=== PATIENT | male | born 1930 | race Caucasian/White ===

== ENCOUNTER 2017-05-23 06:28 | Emergency (ER) | payer MEDICARE, OTHER ==
[2017-05-23] MEDS ORDERED: OXYMETAZOLINE NASAL SPRAY NAS ONE (06:42)
[2017-05-23] MEDS ORDERED: OXYMETAZOLINE NASAL SPRAY NAS STA (06:46)
--- NOTE | 2017-05-23 06:50 | ED Physician Documentation ---
History of Present Illness - Stated complaint Stated Complaint: NOSE BLEED - Chief complaint Chief Complaint: Heent - Additonal information Additional information: hx from pt 86 male epistaxis every AM for 5 days mostly from L nares, some from right too but less no blood thinners Review of Systems Nose: reports: Epistaxis PD PAST MEDICAL HISTORY - Past Medical History Past Medical History: Yes Cardiovascular: Hypertension, High cholesterol, Valve disorder Endocrine/Autoimmune: HyPOthyroidism - Past Surgical History Past Surgical History: Yes Cardiovascular: Coronary stent, Valve replacement - Present Medications Home Medications: Ambulatory Orders Medication Instructions Recorded Confirmed Levothyroxine [Synthroid] 50 mg PO DAILY 02/14/16 05/23/17 Losartan [Cozaar] 25 mg PO DAILY 02/14/16 05/23/17 Aspirin [Aspir-Low] 81 mg PO DAILY 03/13/16 05/23/17 Metoprolol Tartrate 25 mg PO DAILY 03/13/16 05/23/17 - Allergies Allergies/Adverse Reactions: Allergies Allergy/AdvReac Type Severity Reaction Status Date / Time Sulfa (Sulfonamide Allergy Unknown Verified 05/23/17 06:38 Antibiotics) codeine AdvReac Nausea Verified 05/23/17 06:38 - Social History Does the pt smoke?: No Smoking Status: Never smoker Does the pt drink ETOH?: Yes Does the pt have substance abuse?: No - Immunizations Immunizations are current?: No - POLST Patient has POLST: No PD ED PE NORMAL - Vitals Vital signs reviewed: Yes - HEENT HEENT: Other (L nares several punctate spots of bleeding from ant spetum and a second oozing spot higher up the septum, no ongiong active bleeding after afrin , no blood seen in right nares) Results - Vitals Vitals: Vital Signs - 24 hr 05/23/17 05/23/17 06:30 06:42 Temperature 36.0 C L Heart Rate 80 67 Respiratory 16 18 Rate Blood Pressure 167/84 H 150/99 H O2 Saturation 97 99 Oxygen O2 Source Room air Procedures - Epistaxis Site: Left Preparation: Clots removed, Afrin Treatment: Silver Nitrate Other: Observed - no bleeding, Pt tolerated well, Referred to ENT PD MEDICAL DECISION MAKING - ED course ED course: L nares cauterized, no further bleeding Departure - Departure Disposition: 01 Home, Self Care Clinical Impression: Epistaxis Condition: Good Instructions: ED Nosebleed Follow-Up: [facility] [Provider Group] Comments: If your nose starts to bleed again, do the following steps 1) gently blow your nose to get rid of any clots 2) give yourself a big squirt of the afrin nose spray in whichever nostril is bleeding 3) apply the clamp we gave you and leave it on for 30 minutes without peeking If jorge a does not stop the bleeding, you will need to come back to the ER And please call the ENT office to schedule a follow up appointment
[2017-05-23 07:59] VITALS: BP 156/86
== END 2017-05-23 08:14 | disposition home or self-care (01) ==
LOC: ED 06:28
DX: R04.0 Epistaxis (principal); I10 Essential (primary) hypertension; E78.00 Pure hypercholesterolemia, unspecified; E03.9 Hypothyroidism, unspecified; Z95.2 Presence of prosthetic heart valve; Z79.82 Long term (current) use of aspirin
CPT/HCPCS: 30901; 99282; 99284; A9270

== ENCOUNTER 2017-05-24 08:01 | Emergency (ER) | payer MEDICARE, OTHER ==
--- NOTE | 2017-05-24 08:33 | ED Physician Documentation ---
PD HPI HEENT - Stated complaint Stated Complaint: NOSE BLEED - Chief complaint Chief Complaint: Heent - History obtained from History obtained from: Patient - History of Present Illness Timing - onset: Today (nosebleed) Timing - duration: Hours (1) Timing - details: Abrupt onset, Still present Associated symptoms: No: Fever, Congestion, Rhinorrhea Similar symptoms before: Diagnosis (nosebleed) Recently seen: Emergency Dept (seen yesterday and had bleeding left side, with cautery and then rhinorocket placed. He was doing okay and then had bleeding again this morning which continued despite pinching nose with clamp. Some blood then to right side and back of throat.) Review of Systems Constitutional: denies: Fever, Chills Nose: reports: Rhinorrhea / runny nose (last week), Epistaxis. denies: Sinus pressure / pain Throat: denies: Sore throat Respiratory: denies: Cough GI: denies: Nausea, Vomiting Endocrine: denies: Easy bruising / bleeding Immunocompromised: denies: Immunocompromised PD PAST MEDICAL HISTORY - Past Medical History Cardiovascular: Hypertension, High cholesterol, Valve disorder Endocrine/Autoimmune: HyPOthyroidism - Past Surgical History Past Surgical History: Yes Cardiovascular: Coronary stent, Valve replacement - Present Medications Home Medications: Ambulatory Orders Medication Instructions Recorded Confirmed Levothyroxine [Synthroid] 50 mg PO DAILY 02/14/16 05/23/17 Losartan [Cozaar] 25 mg PO DAILY 02/14/16 05/23/17 Aspirin [Aspir-Low] 81 mg PO DAILY 03/13/16 05/23/17 Metoprolol Tartrate 25 mg PO DAILY 03/13/16 05/23/17 - Allergies Allergies/Adverse Reactions: Allergies Allergy/AdvReac Type Severity Reaction Status Date / Time Sulfa (Sulfonamide Allergy Unknown Verified 05/24/17 08:19 Antibiotics) codeine AdvReac Nausea Verified 05/24/17 08:19 - Social History Does the pt smoke?: No Smoking Status: Never smoker Does the pt drink ETOH?: Yes Does the pt have substance abuse?: No - Immunizations Immunizations are current?: No - POLST Patient has POLST: No PD ED PE NORMAL - Vitals Vital signs reviewed: Yes - General General: Alert and oriented X 3, No acute distress, Well developed/nourished - HEENT HEENT: Other (balloon rhinorocket in place left nostril with some blood dripping from it. It was removed and I could see bleeding left medial anterior wall. ) - Neck Neck: Supple, no meningeal sign, No adenopathy - Cardiac Cardiac: RRR, No murmur - Respiratory Respiratory: Clear bilaterally - Derm Derm: Normal color, Warm and dry Results - Vitals Vitals: Vital Signs - 24 hr 05/24/17 05/24/17 08:12 09:55 Temperature 36.5 C Heart Rate 83 69 Respiratory 18 15 Rate Blood Pressure 135/76 H 142/77 H O2 Saturation 98 99 Oxygen O2 Source Room air Procedures - Epistaxis Site: Left, Anterior Preparation: Clots removed, Afrin, Lidocaine, Clamp / pressure applied Treatment: Silver Nitrate, Packing inserted (murocel) Other: Observed - no bleeding, Pt tolerated well, O2 sat WNL Departure - Departure Disposition: 01 Home, Self Care Clinical Impression: Epistaxis Condition: Stable Record reviewed to determine appropriate education?: Yes Instructions: ED Nosebleed Follow-Up: Jose Hope MD [Primary Care Provider] - Comments: Keep the foam packing in the left nostril for 1-2 days. If you have recurrent bleeding, pinched nose and spray the phone with Afrin. Return if needed because of bleeding. Otherwise recheck in 1-2 days for recheck removal of the nose packing and to ensure its doing okay. Discharge Date/Time: 05/24/17 10:01
[2017-05-24] MEDS ORDERED: OXYMETAZOLINE NASAL SPRAY NAS STA (08:35)
[2017-05-24] MEDS ORDERED: OXYMETAZOLINE NASAL SPRAY NAS ONE (08:46)
[2017-05-24 09:58] VITALS: BP 142/77
--- NOTE | 2017-05-24 21:06 | ED Physician Documentation ---
ED Addendum - Addendum Addendum: 05/24/17 21:05 unscheduled return visit - chart accessed for follow up and educational purposes
== END 2017-05-24 10:01 | disposition home or self-care (01) ==
LOC: ED 08:01
DX: R04.0 Epistaxis (principal); I10 Essential (primary) hypertension; E78.00 Pure hypercholesterolemia, unspecified; E03.9 Hypothyroidism, unspecified; Z95.2 Presence of prosthetic heart valve
CPT/HCPCS: 30901; 99282; 99283; A9270

== ENCOUNTER 2017-05-25 08:41 | Emergency (ER) | payer MEDICARE, OTHER ==
--- NOTE | 2017-05-25 08:43 | ED Physician Documentation ---
PD HPI HEENT - Stated complaint Stated Complaint: PLUG IN NOSE - History obtained from History obtained from: Patient - History of Present Illness Timing - onset: How many days ago (seen 2 days ago for nosebleed, with bleeding again yesterday, and had cuatery and packing. Was to return for recheck and packing removal today. No bleeding again per patient.) Timing - details: Abrupt onset, Now resolved Location: Nose Similar symptoms before: Diagnosis (nosebleed) Recently seen: Emergency Dept (yesterday) Review of Systems Constitutional: denies: Fever, Chills Nose: reports: Epistaxis. denies: Sinus pressure / pain PD PAST MEDICAL HISTORY - Past Medical History Cardiovascular: Hypertension, High cholesterol, Valve disorder Endocrine/Autoimmune: HyPOthyroidism - Past Surgical History Past Surgical History: Yes Cardiovascular: Coronary stent, Valve replacement - Present Medications Home Medications: Ambulatory Orders Medication Instructions Recorded Confirmed Levothyroxine [Synthroid] 50 mg PO DAILY 02/14/16 05/25/17 Losartan [Cozaar] 25 mg PO DAILY 02/14/16 05/25/17 Aspirin [Aspir-Low] 81 mg PO DAILY 03/13/16 05/25/17 Metoprolol Tartrate 25 mg PO DAILY 03/13/16 05/25/17 - Allergies Allergies/Adverse Reactions: Allergies Allergy/AdvReac Type Severity Reaction Status Date / Time Sulfa (Sulfonamide Allergy Unknown Verified 05/25/17 08:48 Antibiotics) codeine AdvReac Nausea Verified 05/25/17 08:48 - Social History Does the pt smoke?: No Smoking Status: Never smoker Does the pt drink ETOH?: Yes Does the pt have substance abuse?: No - Immunizations Immunizations are current?: No - POLST Patient has POLST: No PD ED PE NORMAL - Vitals Vital signs reviewed: Yes - General General: Alert and oriented X 3 - HEENT HEENT: Pharynx benign, Other (packing left nostril which is white. No bleeding. Packing removed without problems and the cautery area is clean. ) Results - Vitals Vitals: Oxygen O2 Source Room air Departure - Departure Disposition: Home, Self Care Clinical Impression: Encounter for removal of nasal packing Condition: Stable Record reviewed to determine appropriate education?: Yes Follow-Up: Jose Hope MD [Primary Care Provider] - Comments: Gently apply some ointment to the inside nostril on the left with a Q-tip once or twice a day to keep it moisturized. Recheck if recurrent bleeding. Continue usual medications. Follow-up with your family doctor as needed. Discharge Date/Time: 05/25/17 09:18
[2017-05-25 08:48] VITALS: BP 157/85
== END 2017-05-25 09:18 | disposition home or self-care (01) ==
LOC: ED 08:41
DX: Z48.00 Encounter for change or removal of nonsurgical wound dressing (principal)
CPT/HCPCS: 99282; 99283

== ENCOUNTER 2017-05-27 08:10 | Emergency (ER) | payer MEDICARE, OTHER ==
[2017-05-27 08:18] VITALS: BP 163/74
[2017-05-27] MEDS ORDERED: LIDOCAINE-EPINEPH-TETRACAINE 3 ML SYRINGE TOP STA (08:51)
[2017-05-27] MEDS ORDERED: LIDOCAINE-EPINEPH-TETRACAINE 3 ML SYRINGE TOP ONE (08:59)
--- NOTE | 2017-05-27 09:11 | ED Physician Documentation ---
PD HPI HEENT - Stated complaint Stated Complaint: NOSE BLEED - Chief complaint Chief Complaint: Heent - History obtained from History obtained from: Patient - History of Present Illness Timing - onset: How many days ago (5) Timing - duration: Days (5) Timing - details: Gradual onset, Still present, Waxing and waning Location: Nose Associated symptoms: No: Fever, Congestion, Rhinorrhea, Trismus, Unable to swallow Similar symptoms before: Diagnosis (epistaxis) Recently seen: Clinic, Emergency Dept - Additional information Additional information: 86-year-old male has had some difficulty with bleeding from the left nares for the past 6 days. He has had symptoms on and off he has been into the emergency department 3 times with packing and cautery and he has been into see his primary care doctor as well. This morning he had some bleeding again and he is come to the hospital. The bleeding is now controlled. Review of Systems Constitutional: denies: Fever Ears: denies: Ear pain Nose: reports: Epistaxis Throat: denies: Sore throat Respiratory: denies: Cough GI: denies: Vomiting PD PAST MEDICAL HISTORY - Past Medical History Cardiovascular: Hypertension, High cholesterol, Valve disorder Endocrine/Autoimmune: HyPOthyroidism - Past Surgical History Past Surgical History: Yes Cardiovascular: Coronary stent, Valve replacement - Present Medications Home Medications: Ambulatory Orders Medication Instructions Recorded Confirmed Levothyroxine [Synthroid] 50 mg PO DAILY 02/14/16 05/27/17 Losartan [Cozaar] 25 mg PO DAILY 02/14/16 05/27/17 Aspirin [Aspir-Low] 81 mg PO DAILY 03/13/16 05/27/17 Metoprolol Tartrate 25 mg PO DAILY 03/13/16 05/27/17 - Allergies Allergies/Adverse Reactions: Allergies Allergy/AdvReac Type Severity Reaction Status Date / Time Sulfa (Sulfonamide Allergy Unknown Verified 05/27/17 08:17 Antibiotics) codeine AdvReac Nausea Verified 05/27/17 08:17 - Social History Does the pt smoke?: No Smoking Status: Never smoker Does the pt drink ETOH?: Yes Does the pt have substance abuse?: No - Immunizations Immunizations are current?: No - POLST Patient has POLST: No PD ED PE NORMAL - Vitals Vital signs reviewed: Yes (Hypertensive) - General General: No acute distress, Well developed/nourished - HEENT HEENT: Atraumatic, PERRL, EOMI, Other (There is no active bleeding from the left nares there are 2 small areas of recent bleeding on the anterior septum. ) - Neck Neck: Supple, no meningeal sign, No bony TTP - Respiratory Respiratory: No respiratory distress - Derm Derm: Normal color, Warm and dry, No rash - Extremities Extremities: No deformity, No edema - Neuro Neuro: No motor deficit, No sensory deficit Eye Opening: Spontaneous Motor: Obeys Commands Verbal: Oriented GCS Score: 15 - Psych Psych: Normal mood, Normal affect Results - Vitals Vitals: Vital Signs - 24 hr 05/27/17 08:15 Temperature 36.4 C L Heart Rate 77 Respiratory 16 Rate Blood Pressure 163/74 H O2 Saturation 97 Oxygen O2 Source Room air Procedures - Epistaxis Site: Left Preparation: Clamp / pressure applied, Other (LET packing) Treatment: Silver Nitrate Other: Observed - no bleeding, Pt tolerated well, O2 sat WNL PD MEDICAL DECISION MAKING - ED course Complexity details: reviewed old records, re-evaluated patient, considered differential, d/w patient ED course: 86-year-old male with recurrent epistaxis today does not appear to have much in the way of bleeding it does appear he has been able to control bleeding with a clamp there are 2 small areas of recent bleeding and after packing the nose with let these areas are cauterized with silver nitrate. No further packing is required. Departure - Departure Disposition: 01 Home, Self Care Clinical Impression: Epistaxis Condition: Stable Instructions: ED Nosebleed Follow-Up: Jose Hope MD [Primary Care Provider] -
== END 2017-05-27 09:33 | disposition home or self-care (01) ==
LOC: ED 08:10
DX: R04.0 Epistaxis (principal); I10 Essential (primary) hypertension; N64.4 Mastodynia; N62 Hypertrophy of breast; E78.00 Pure hypercholesterolemia, unspecified; E03.9 Hypothyroidism, unspecified; M12.9 Arthropathy, unspecified; Z95.2 Presence of prosthetic heart valve; Z79.82 Long term (current) use of aspirin
CPT/HCPCS: 30901; 36415; 80053; 84443; 99282; 99283; G0204; 77066

== ENCOUNTER 2017-05-27 10:09 | Outpatient (CLI) | payer MEDICARE, OTHER ==
[2017-05-27 10:41] LABS: BILIRUBIN,TOTAL 0.8 mg/dL (0.2-1.0); CALCIUM 9.9 mg/dL (8.5-10.3); CREATININE 1.4 mg/dL (0.6-1.2); POTASSIUM 4.7 mmol/L (3.5-5.0); TOTAL PROTEIN 7.9 g/dL (6.7-8.2)
== END 2017-05-27 10:10 | disposition home or self-care (01) ==
LOC: LAB 10:09
PROVIDERS: ATTEND Family Medicine
DX: E03.9 Hypothyroidism, unspecified (principal); M12.9 Arthropathy, unspecified; Z79.899 Other long term (current) drug therapy
CPT/HCPCS: 36415; 80053; 84443

== ENCOUNTER 2017-05-27 14:12 | Outpatient (CLI) | payer MEDICARE, OTHER ==
--- NOTE | 2017-05-27 19:23 | Mammography Report ---
DIGITAL DIAGNOSTIC BILATERAL MAMMOGRAM: 05/27/2017 CLINICAL INDICATION: Right retroareolar pain. TECHNIQUE: Bilateral CC and MLO views. Markers were placed at the site of maximal tenderness identi fied by the patient in the right periareolar breast. The breasts demonstrate fatty replacement bilaterally. There is a small amount of asymmetric gynecom astia behind the right nipple. No mass or calcifications are appreciated. IMPRESSION: MILD ASYMMETRIC GYNECOMASTIA. RECOMMENDATION: CONTINUED CLINICAL MANAGEMENT. BIRADS CATEGORY: 2, BENIGN FINDINGS. STANDARD QUALIFYING STATEMENTS 1. This examination was reviewed with the aid of Computed-Aided Detection (CAD). 2. A negative or benign imaging report should not delay biopsy if clinically suspicious findings are present. Consider surgical consultation if warranted. More than 5% of cancers are not identified b y imaging. 3. Dense breasts may obscure an underlying neoplasm. JOB #: [id number] EXT JOB #:
== END 2017-05-27 14:13 | disposition home or self-care (01) ==
LOC: DI 14:12
PROVIDERS: ATTEND Physician Assistant Medical
DX: N64.4 Mastodynia (principal); N62 Hypertrophy of breast
CPT/HCPCS: 77066

== ENCOUNTER 2020-03-17 10:05 | Outpatient (CLI) | payer MEDICARE, OTHER | END 2020-03-17 10:06 | disposition critical access hospital (66) | LOC: EMS 10:05 | PROVIDERS: ATTEND Surgery | DX: R06.02 Shortness of breath (principal); R53.1 Weakness; R05 Cough | CPT/HCPCS: A0425; A0427 ==

== ENCOUNTER 2020-03-17 10:18 | Inpatient (IN) | payer MEDICARE, OTHER ==
--- NOTE | 2020-03-17 10:49 | ED Physician Documentation ---
PD HPI DYSPNEA - Stated complaint Stated Complaint: DYSPNEA - Chief complaint Chief Complaint: Cardiac - History obtained from History obtained from: Patient - History of Present Illness Timing - onset: How many weeks ago (several weeks) Timing - details: Gradual onset, Still present (worse the past several days, particularly in AMs and with lying flat. Has had progressive edema in both legs and scrotum as well, during the past few weeks.) Inciting event(s): No: URI, Immobilization/travel Improved by: Rest, Sitting up Worsened by: Exertion, Laying flat, Coughing Associated symptoms: Cough (nonproductive the past week), Bilateral edema. No: Fever, Hemoptysis, Wheezing, Chest pain / discomfort, Palpitations Similar symptoms before: Has not had sx before Review of Systems Constitutional: denies: Fever Nose: denies: Rhinorrhea / runny nose, Congestion Throat: denies: Sore throat Cardiac: reports: Chest pain / pressure (tightness with dyspnea), Pedal edema. denies: Palpitations, Calf pain Respiratory: reports: Dyspnea, Cough. denies: Wheezing GI: denies: Abdominal Pain, Nausea, Vomiting, Diarrhea Musculoskeletal: denies: Neck pain, Back pain Neurologic: reports: Generalized weakness, Near syncope. denies: Focal weakness, Numbness, Headache Psychiatric: denies: Anxiety Endocrine: reports: Weight gain. denies: Weight loss Immunocompromised: denies: Immunocompromised PD PAST MEDICAL HISTORY - Past Medical History Past Medical History: Yes Cardiovascular: Hypertension, High cholesterol, Valve disorder Respiratory: COPD Endocrine/Autoimmune: HyPOthyroidism - Past Surgical History Past Surgical History: Yes Cardiovascular: Valve replacement, Other (heart ablation due to tachyarrhythmia) - Present Medications Home Medications: Ambulatory Orders Medication Instructions Recorded Confirmed Levothyroxine [Synthroid] 50 mg PO DAILY 02/14/16 05/27/17 Losartan [Cozaar] 25 mg PO DAILY 02/14/16 05/27/17 Aspirin [Aspir-Low] 81 mg PO DAILY 03/13/16 05/27/17 Metoprolol Tartrate 25 mg PO DAILY 03/13/16 05/27/17 - Allergies Allergies/Adverse Reactions: Allergies Allergy/AdvReac Type Severity Reaction Status Date / Time Sulfa (Sulfonamide Allergy Unknown Verified 05/27/17 08:17 Antibiotics) codeine AdvReac Nausea Verified 05/27/17 08:17 - Social History Does the pt smoke?: No Smoking Status: Never smoker Does the pt drink ETOH?: Yes Does the pt have substance abuse?: No - Immunizations Immunizations are current?: No - POLST Patient has POLST: No PD ED PE NORMAL - Vitals Vital signs reviewed: Yes (sats are godd) - General General: Alert and oriented X 3, Well developed/nourished - HEENT HEENT: Pharynx benign - Neck Neck: Supple, no meningeal sign, No adenopathy. No: No JVD (JVD noted ) - Cardiac Cardiac: RRR, Other (1/6 systolic murmur left chest radiating to neck. ) - Respiratory Respiratory: No: Clear bilaterally (Bibasilar crackles at the bottom third. No wheezing but there is prolonged expiratory phase.) - Abdomen Abdomen: Soft, Non tender, Non distended - Derm Derm: Normal color, Warm and dry - Extremities Extremities: No calf tenderness / cord, Other (Bilateral edema without any calf tenderness. It extends up to the knees. There is scrotal edema noted as well and on the penile shaft) - Neuro Neuro: Alert and oriented X 3, No motor deficit, Normal speech Results - Vitals Vitals: Vital Signs - 24 hr 03/17/20 03/17/20 03/17/20 10:25 11:30 11:45 Temperature 36.5 C 36.3 C L Heart Rate 67 63 64 Respiratory 20 18 16 Rate Blood Pressure 160/93 H 142/79 H O2 Saturation 98 98 03/17/20 03/17/20 12:00 12:53 Temperature Heart Rate 66 69 Respiratory 22 16 Rate Blood Pressure 146/86 H 151/84 H O2 Saturation 99 99 Oxygen O2 Source Room air - EKG (time done) 10:25 Rate: Rate (enter#) (65) Rhythm: NSR Intervals: Wide QRS QRS: Normal Ischemia: Normal ST segments, Non specific changes. No: ST elevation c/w ischemia, ST depression - Labs Labs: Laboratory Tests 03/17/20 03/17/20 03/17/20 10:43 10:43 10:43 WBC 4.6 L RBC 3.86 L Hgb 12.3 L Hct 38.4 L MCV 99.5 H MCH 31.9 H MCHC 32.0 RDW 15.1 H Plt Count 159 MPV 10.1 Neut # (Auto) 2.6 Lymph # (Auto) 1.3 L [place] # (Auto) 0.5 Eos # (Auto) 0.2 Baso # (Auto) 0.0 Absolute Nucleated RBC 0.00 Nucleated RBC % 0.0 Sodium 135 Potassium 4.5 Chloride 102 Carbon Dioxide 25 Anion Gap 8.0 BUN 41 H Creatinine 1.6 H Estimated GFR (MDRD) 41 L Glucose 102 H Calcium 9.8 Magnesium Total Bilirubin 1.0 AST 39 ALT 20 Alkaline Phosphatase 81 Troponin I High Sens 106.4 H* B-Natriuretic Peptide Total Protein 7.8 Albumin 3.7 Globulin 4.1 Albumin/Globulin Ratio 0.9 L Lipase 53 H 03/17/20 03/17/20 03/17/20 10:43 10:43 12:32 WBC RBC Hgb Hct MCV MCH MCHC RDW Plt Count MPV Neut # (Auto) Lymph # (Auto) [place] # (Auto) Eos # (Auto) Baso # (Auto) Absolute Nucleated RBC Nucleated RBC % Sodium Potassium Chloride Carbon Dioxide Anion Gap BUN Creatinine Estimated GFR (MDRD) Glucose Calcium Magnesium 2.3 Total Bilirubin AST ALT Alkaline Phosphatase Troponin I High Sens 112.2 H* B-Natriuretic Peptide 1085 H Total Protein Albumin Globulin Albumin/Globulin Ratio Lipase - Rads (name of study) chest xray Radiology: Prelim report reviewed (Bilateral effusions greater on the right. Localized infiltrate cannot be excluded. There is general vascular congestion consistent with CHF), See rad report PD MEDICAL DECISION MAKING - ED course Complexity details: reviewed results, considered differential (Symptoms are consistent with acute CHF progressive over the last several weeks and worse now. His saturations are good. His respirations are unlabored without respiratory failure impending. He does however have significant edema and needs to initiate diuresing. Prior ECHO 2 yrs ago), d/w patient Departure - Departure Disposition: ED Place in Observation Clinical Impression: Bilateral edema of lower extremity Dyspnea Qualifiers: Dyspnea type: orthopnea Qualified Code(s): R06.01 - Orthopnea CHF (congestive heart failure) Qualifiers: Heart failure type: unspecified Heart failure chronicity: acute on chronic Qualified Code(s): I50.9 - Heart failure, unspecified Condition: Stable Record reviewed to determine appropriate education?: Yes Discharge Date/Time: 03/17/20 14:04
[2020-03-17 11:06] LABS: BASOPHILS % (AUTO) 0.9 %; EOSINOPHILS # (AUTO) 0.2 10^3/uL (0.0-0.7); EOSINOPHILS % (AUTO) 3.5 %; HGB - HEMOGLOBIN 12.3 g/dL (14.0-18.0); LYMPHOCYTES # (AUTO) 1.3 10^3/uL (1.5-3.5); LYMPHOCYTES % (AUTO) 28.3 %; MEAN CORPUSCULAR HEMOGLOBIN 31.9 pg (27.0-31.0); MEAN CORPUSCULAR VOLUME 99.5 fL (80.0-94.0); MEAN PLATELET VOLUME 10.1 fL (7.4-11.4); MONOCYTES # (AUTO) 0.5 10^3/uL (0.0-1.0); NEUTROPHILS # (AUTO) 2.6 10^3/uL (1.5-6.6); NEUTROPHILS % (AUTO) 56.1 %; PLT - PLATELET COUNT 159 10^3/uL (130-450); RED BLOOD COUNT 3.86 10^6/uL (4.70-6.10); RED CELL DISTRIBUTION WIDTH 15.1 % (12.0-15.0); WHITE BLOOD COUNT 4.6 x10^3/uL (4.8-10.8)
[2020-03-17] MEDS ORDERED: ALBUTEROL 1 PUFF INH STA (11:23)
[2020-03-17] MEDS ORDERED: FUROSEMIDE 40 MG/4 ML VIAL IVP STA (11:23)
[2020-03-17] MEDS ORDERED: DEXAMETHASONE 10 MG/ML VIAL IVP STA (11:23)
[2020-03-17 11:25] LABS: ALBUMIN 3.7 g/dL (3.2-5.5); ALBUMIN/GLOBULIN RATIO 0.9 (1.0-2.2); CALCIUM 9.8 mg/dL (8.5-10.3); CREATININE 1.6 mg/dL (0.6-1.2); TOTAL PROTEIN 7.8 g/dL (6.7-8.2)
--- NOTE | 2020-03-17 11:25 | XRAY Report ---
PROCEDURE: Chest 1 View X-Ray INDICATIONS: Chest pain TECHNIQUE: One view of the chest was acquired. COMPARISON: 02/14/2016 FINDINGS: Surgical changes and devices: None. Lungs and pleura: Blunting of bilateral costophrenic angle is seen with hazy opacity over lateral por tion of right mid to lower lung field suggestive of partially loculated right pleural effusion and sm all left pleural effusion. Underlying right lower lobe infiltrate cannot be excluded. No gross pneumo thorax. Pulmonary vascular congestion is seen. Mediastinum: Mediastinal contours appear normal. Heart size is enlarged. Bones and chest wall: No suspicious bony lesions. Overlying soft tissues appear unremarkable. IMPRESSION: CHF changes with right greater than left bilateral pleural effusion. Cannot rule out underlying right lower lobe infiltrate. No gross pneumothorax. Reviewed by: Mario Monroy MD on 03/17/2020 11:24 AM PDT Approved by: Mario Monroy MD on 03/17/2020 11:24 AM PDT Station ID: [id number]
[2020-03-17] MEDS ORDERED: NITROGLYCERIN 2% PASTE TOP STA (12:51)
[2020-03-17] MEDS ORDERED: ONDANSETRON 4 MG/2 ML VIAL IVP PRN (13:16)
[2020-03-17] MEDS ORDERED: SODIUM CHLORIDE FLUSH 0.9% 10 ML SYRINGE IVP PRN (13:16)
[2020-03-17] MEDS ORDERED: ACETAMINOPHEN 325 MG TABLET PO PRN (13:16)
--- NOTE | 2020-03-17 13:55 | HISTORY & PHYSICAL EXAMINATION ---
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 pt report when pt awoke he was feeling short of breath in this AM. pt reports ongoing shortness of breath has been over 1 month that is worsened by laying down. pt has hx of COPD that he uses an inhaler once a day for but he has had to increase that to twice a day recently. pt states he used the inhaler and got minimal relief. pt also report progressive edema in bilateral lower extremities and scrotum as well during past a few weeks. Patient denies fever, chest pain, abdominal pain, nausea, vomiting, diarrhea. Patient reported he had Lasix about 7 months ago by his PCP but only given 1 prescribed. In routine laboratory test patient had a BNP over 1000, Baseline was over 100. Patient had slightly elevated troponin at 100, Repeated troponin at 110. EKG did not show elevated ST segment. Patient deny chest pain. Patient is hemodynamic stable at this time. Director Learning Services was called by Dr. Gardner and recommended we admitted and monitor pt, and see outpatient with boom cat operator with echo study. Unfortunately we do not have echo study in the weekend and today. Discussed the care goal with the patient, patient stay he want DNR/DNI for CODE STATUS History - Past Medical History Cardiovascular: reports: Hypertension, High cholesterol, Valve disorder Endocrine/Autoimmune: reports: HyPOthyroidism MRSA Hx?: No - Past Surgical History Cardiovascular: reports: Coronary stent, Valve replacement - Family & Social History Family History: Mother: , COPD/Emphysema, Father: , COPD/Emphysema Family History Comment/Other: Patient report both his parents smoke cigarettes a lot, Both from COPD complication. He has 3 daughter, all healthy Social History Notes: Patient reported when he is about 20 years old, he smoked but then he stopped. He has no alcohol issue or drug issue. He moved from [place] in 1979 to [facility] [place]. he is window. - POLST Patient has POLST: No Meds/Allgy - Home Medications Home Medications: Ambulatory Orders Medication Instructions Recorded Confirmed Levothyroxine [Synthroid] 50 mg PO DAILY 02/14/16 05/27/17 Losartan [Cozaar] 25 mg PO DAILY 02/14/16 05/27/17 Aspirin [Aspir-Low] 81 mg PO DAILY 03/13/16 05/27/17 Metoprolol Tartrate 25 mg PO DAILY 03/13/16 05/27/17 - Allergies Allergies/Adverse Reactions: Allergies Allergy/AdvReac Type Severity Reaction Status Date / Time Sulfa (Sulfonamide Allergy Unknown Verified 05/27/17 08:17 Antibiotics) codeine AdvReac Nausea Verified 05/27/17 08:17 Review of Systems - Constitutional Constitutional: denies: Fatigue, Fever, Chills, Malaise, Weakness, Poor appe tite, Diaphoresis, Night sweats - Eyes Eyes: denies: Pain, Blurred vision, Spots in vision, Field loss - Ears, Nose & Throat Ears, Nose & Throat: denies: Ear pain, Vertigo, Nasal pain, Nasal discharge, Nosebleeds, Nasal congestion, Postnasal drainage, Dentures, Sore throat, Mouth lesions, Bleeding gums - Cardiovascular Cariovascular: reports: Edema, Exertional dyspnea, Decr. exercise tolerance, Orthopnea. denies: Irregular heart rate, Palpitations, Chest pain, Lightheadedness, Syncope - Respiratory Respiratory: reports: SOB with exertion. denies: Cough, Sputum production, Wheezing, Snoring, Hemoptysis, Orthopnea, SOB at rest - Gastrointestinal Gastrointestinal: denies: Abdominal pain, Constipation, Diarrhea, Rectal bleeding, Black stools, Bloody stools, Nausea, Vomiting, Marcello blood emesis, [place] emesis, Reflux/heartburn - Genitourinary Genitourinary: denies: Dysuria, Frequency, Hematuria, Incontinence, Flank pain, Urethral discharge - Musculoskeletal Musculoskeletal: denies: Muscle pain, Back pain, Muscle aches, Stiffness, Limited range of motion, Muscle weakness, Gout - Integumentary Integumentary: denies: Rash, Lesions, Lumps, Pigment changes - Neurological Neurological: denies: General weakness, Focal weakness, Headache, Dizziness, Numbness, Memory problems, Pre-existing deficit, Abnormal gait, Seizures, Incoordination, Slurred speech - Psychiatric Psychiatric: denies: Depression, Suicidal, Delusions, Hallucinations, Homicidal - Endocrine Endocrine: denies: Polyuria, Polydypsia - Hematologic/Lymphatic Hematologic/Lymphatic: denies: Anemia, Petechiae, Blood clots, Lymphadenopathy, Recurrent infections Exam - Vital Signs Vital Signs: Vital Signs x48h Temp Pulse Resp BP Pulse Ox 03/17/20 13:53 36.6 C 69 20 160/86 H 97 03/17/20 12:53 69 16 151/84 H 99 03/17/20 12:00 66 22 146/86 H 99 03/17/20 11:45 64 16 03/17/20 11:30 36.3 C L 63 18 142/79 H 98 03/17/20 10:25 36.5 C 67 20 160/93 H 98 - Physical Exam General Appearance: positive: No acute distress, Alert. negative: Lethargic Eyes Bilateral: positive: Normal inspection, PERRL, No lid inflammation ENT: positive: ENT inspection nml, No signs of dehydration. negative: Purulent nasal drainage Neck: positive: Nml inspection, Thyroid nml, Trachea midline. negative: Thyrom egaly, Stiff neck, Tracheal deviation Respiratory: positive: Chest non-tender, No respiratory distress. negative: Breath sounds nml, Wheezes, Rales Cardiovascular: positive: No murmur, Irregularly irregular. negative: Tachycardia, Bradycardia, Systolic murmur, Diastolic murmur Peripheral Pulses: positive: 2+ Abdomen: positive: Non-tender, Nml bowel sounds, No distention. negative: Tenderness, Guarding, Rebound Back: positive: Nml inspection. negative: CVA tenderness (R), CVA tenderness (L) Skin: positive: Color nml, No rash, Warm, Dry. negative: Cyanosis, Diaphoresis, Pallor Extremities: positive: Non-tender, Nml appearance. negative: Calf tenderness, Naida's sign/cords Neurologic/Psychiatric: positive: Oriented x3, Motor nml, Sensation nml, Mood/affect nml. negative: Weakness, Sensory loss, Facial droop, Slurred/abnml speech, Depressed mood/affect Conclusion/Plan - Problem List (1) CHF exacerbation Conclusion/Plan: Patient had over 1000 BMP, Suggestion of pulmonary vascular congestion with pleural effusion in chest x-ray, Clinically patient present bilaterally mild to moderate lower extremities edema and with scrotum edema, and othopnea. All suggest pt had Fluids overloaded. Unfortunately we do not have echo study. Director Learning Services was called and he recommendation admission the patient and follow- up with echo study as outpatient. ER started with Lasix, we will continue Lasix, medical laboratory scientist, vital signs monitor (2) Elevated troponin Conclusion/Plan: Patient had elevated troponin I 100, repeated troponin I 110, Patient denying chest pain, EKG without ST segment elevation, cardiology was called for the elevated troponin, recommended we admitted the patient and follow-up outpatient echo study. pt is hemodynamic stable now. continue serial troponin test, tele monitor, Resume home medication metoprololAnd a baby aspirin. (3) Pleural effusion due to congestive heart failure Conclusion/Plan: Chest x-ray showed CHF change with right than left bilateral pleural effusion, Also suggestion partial loculated right pleural effusion. clinically patient has no respiratory respiratory distress, patient has no cough, patient has no fever, Patient has 97% sats on room air. We will continue Lasix diuretics to the patient. Close monitor the patient respiratory status. If you have worsening, we may repeat a chest x-ray or CAT scan (4) HTN (hypertension) Conclusion/Plan: Stable, we will resume home blood pressure medicine after confirmed (5) Hypothyroidism Conclusion/Plan: Patient taking Synthroid in the home, we will check a TSH (6) CKD (chronic kidney disease) stage 3, GFR 30-59 ml/min Conclusion/Plan: Patient has a history of CKD stage III, stable, We will continue laboratory m onitor, continue avoid nephrological toxicity agents - Lab Results Fish Bones: 03/17/20 10:43 03/17/20 10:43 Core Measures - Anticipated LOS I expect patient to be DC'd or transferred within 96 hours.: Yes - DVT/VTE - Prophylaxis VTE/DVT Device ordered at admit?: Yes VTE/DVT Prophylaxis med ordered at admit?: Yes
[2020-03-17] MEDS ORDERED: ALBUTEROL NEB 2.5 MG/3 ML INH PRN (15:39)
[2020-03-17] MEDS: SODIUM CHLORIDE FLUSH 0.9% 10 ML SYRINGE IVP SCH ×2 (17:47→23:41)
[2020-03-17] MEDS ORDERED: ASPIRIN CHEW 81 MG TABLET PO SCH (18:13)
[2020-03-17] MEDS: METOPROLOL TARTRATE 25 MG TABLET PO SCH (20:43)
[2020-03-18 05:32] LABS: HGB - HEMOGLOBIN 10.9 g/dL (14.0-18.0); LYMPHOCYTES # (AUTO) 0.4 10^3/uL (1.5-3.5); LYMPHOCYTES % (AUTO) 11.6 %; MEAN CORPUSCULAR HEMOGLOBIN 31.8 pg (27.0-31.0); MEAN CORPUSCULAR HGB CONC 32.3 g/dL (32.0-36.0); MEAN CORPUSCULAR VOLUME 98.3 fL (80.0-94.0); MEAN PLATELET VOLUME 9.5 fL (7.4-11.4); MONOCYTES # (AUTO) 0.2 10^3/uL (0.0-1.0); MONOCYTES % (AUTO) 5.3 %; NEUTROPHILS # (AUTO) 3.1 10^3/uL (1.5-6.6); NEUTROPHILS % (AUTO) 82.3 %; PLT - PLATELET COUNT 139 10^3/uL (130-450); RED BLOOD COUNT 3.43 10^6/uL (4.70-6.10); RED CELL DISTRIBUTION WIDTH 14.9 % (12.0-15.0); WHITE BLOOD COUNT 3.8 x10^3/uL (4.8-10.8)
[2020-03-18 05:45] LABS: CALCIUM 9.6 mg/dL (8.5-10.3); CREATININE 1.6 mg/dL (0.6-1.2); MAGNESIUM 1.9 mg/dL (1.7-2.8); PHOSPHORUS 3.6 mg/dL (2.5-4.6)
[2020-03-18] MEDS: IPRATROPIUM/ALBUTEROL 3 ML NEB INH PRN (07:17)
[2020-03-18] MEDS ORDERED: FUROSEMIDE 40 MG/4 ML VIAL IVP SCH ×2 (09:00)
[2020-03-18] MEDS: METOPROLOL TARTRATE 25 MG TABLET PO SCH ×2 (09:18→20:13)
[2020-03-18] MEDS: ASPIRIN CHEW 81 MG TABLET PO SCH (09:21)
[2020-03-18] MEDS: SODIUM CHLORIDE FLUSH 0.9% 10 ML SYRINGE IVP SCH ×2 (09:23→16:01)
[2020-03-18] MEDS: HEPARIN 5,000 UNIT/ML VIAL SUBQ SCH ×2 (09:23→20:12)
--- NOTE | 2020-03-18 11:16 | PROVIDER PROGRESS NOTE ---
Subjective - Prog Note Date Prog Note Date: 03/18/20 - Subjective Subjective: He feels like he has not improved much since yesterday. He still has lower extremity edema. Still feels short of breath and has a nonproductive cough. Denies any chest pain Current Medications - Current Medications Current Medications: Active Medications Acetaminophen (Tylenol) 650 mg PO Q4HR PRN PRN Reason: Pain 1 to 4 Albuterol () 2.5 mg INH RTQ4H PRN PRN Reason: Wheezing Albuterol/Ipratropium (Duoneb) 3 ml INH RTQID PRN PRN Reason: Shortness of Air/Wheezing Last Admin: 03/18/20 07:17 Dose: 3 ml Documented by: Aspirin ([place] Aspirin) 81 mg PO DAILY [facility] Last Admin: 03/18/20 09:21 Dose: 81 mg Documented by: Furosemide (Lasix Inj 40 Mg Vial) 60 mg IVP DAILY [facility] Last Admin: 03/18/20 09:21 Dose: 60 mg Documented by: Heparin Sodium (Porcine) () 5,000 unit SUBQ BID [facility] Last Admin: 03/18/20 09:23 Dose: 5,000 unit Documented by: Metoprolol Tartrate (Lopressor) 25 mg PO BID [facility] Last Admin: 03/18/20 09:18 Dose: 25 mg Documented by: Ondansetron HCl (Zofran Inj) 4 mg IVP Q6HR PRN PRN Reason: Nausea / Vomiting Sodium Chloride (Normal Saline Flush 0.9%) 10 ml IVP PRN PRN PRN Reason: NEEDED PER PROVIDER ORDERS Sodium Chloride (Normal Saline Flush 0.9%) 10 ml IVP 0100,0900,1700 [facility] Last Admin: 03/18/20 09:23 Dose: 10 ml Documented by: Levothyroxine [Synthroid] 50 mg PO DAILY 02/14/16 Losartan [Cozaar] 25 mg PO DAILY 02/14/16 Aspirin [Aspir-Low] 81 mg PO DAILY 03/13/16 Metoprolol Tartrate 25 mg PO DAILY 03/13/16 Objective - Vital Signs/Intake & Output Reviewed Vital Signs: Yes Vital Signs: Vital Signs x48h Temp Pulse Pulse Resp BP BP Pulse Ox 03/18/20 09:18 109/55 L 03/18/20 08:30 36.5 C 80 20 109/58 L 95 03/18/20 07:18 70 20 03/18/20 04:35 36.6 C 69 20 123/72 94 Intake & Output: Intake & Output 03/15/20 03/16/20 03/17/20 03/18/20 23:59 23:59 23:59 23:59 Intake Total 360 200 Output Total 1700 250 Balance -1340 -50 - Objective General Appearance: positive: No acute distress, Alert Eyes Bilateral: positive: Normal inspection, Conjunctivae nml ENT: positive: ENT inspection nml Neck: positive: Nml inspection Respiratory: positive: Other (He is not in distress and he is not tachypneic. Breath sounds are diminished bilaterally.). negative: Wheezes, Rhonchi Cardiovascular: positive: Regular rate & rhythm. negative: Irregularly irregular, Tachycardia, Systolic murmur Abdomen: positive: Non-tender, No distention. negative: Tenderness, Guarding, Rebound Skin: positive: Warm, Dry Extremities: positive: Full ROM, Pedal edema (+1 pitting edema in the bilateral lower extremities.) Neurologic/Psychiatric: positive: Oriented x3, Motor nml. negative: Disoriented to person, Disoriented to place, Disoriented to time - Lab Results Fish Bones: 03/18/20 05:14 03/18/20 05:14 Other Labs: Lab Results x24hrs 03/18/20 03/18/20 03/18/20 Range/Units 05:14 05:14 05:14 WBC (4.8-10.8) x10^3/uL RBC (4.70-6.10) 10^6/uL Hgb (14.0-18.0) g/dL Hct (42.0-52.0) % MCV (80.0-94.0) fL MCH (27.0-31.0) pg MCHC (32.0-36.0) g/dL RDW (12.0-15.0) % Plt Count (130-450) 10^3/uL MPV (7.4-11.4) fL Neut # (Auto) (1.5-6.6) 10^3/uL Lymph # (Auto) (1.5-3.5) 10^3/uL [place] # (Auto) (0.0-1.0) 10^3/uL Eos # (Auto) (0.0-0.7) 10^3/uL Baso # (Auto) (0.0-0.1) 10^3/uL Absolute Nucleated RBC x10^3/uL Nucleated RBC % /100WBC Sodium 136 (135-145) mmol/L Potassium 4.4 (3.5-5.0) mmol/L Chloride 108 (101-111) mmol/L Carbon Dioxide 20 L (21-32) mmol/L Anion Gap 8.0 (6-13) BUN 44 H (6-20) mg/dL Creatinine 1.6 H (0.6-1.2) mg/dL Estimated GFR (MDRD) 41 L (>89) Glucose 137 H (70-100) mg/dL Calcium 9.6 (8.5-10.3) mg/dL Phosphorus 3.6 (2.5-4.6) mg/dL Magnesium 1.9 (1.7-2.8) mg/dL Total Bilirubin (0.2-1.0) mg/dL AST (10-42) IU/L ALT (10-60) IU/L Alkaline Phosphatase (42-121) IU/L Troponin I High Sens (2.3-19.7) ng/L B-Natriuretic Peptide 2096 H (5-100) pg/mL Total Protein (6.7-8.2) g/dL Albumin (3.2-5.5) g/dL Globulin (2.1-4.2) g/dL Albumin/Globulin Ratio (1.0-2.2) Lipase (22-51) U/L TSH 0.83 (0.34-5.60) uIU/mL 03/18/20 03/17/20 03/17/20 Range/Units 05:14 18:50 12:32 WBC 3.8 L (4.8-10.8) x10^3/uL RBC 3.43 L (4.70-6.10) 10^6/uL Hgb 10.9 L (14.0-18.0) g/dL Hct 33.7 L (42.0-52.0) % MCV 98.3 H (80.0-94.0) fL MCH 31.8 H (27.0-31.0) pg MCHC 32.3 (32.0-36.0) g/dL RDW 14.9 (12.0-15.0) % Plt Count 139 (130-450) 10^3/uL MPV 9.5 (7.4-11.4) fL Neut # (Auto) 3.1 (1.5-6.6) 10^3/uL Lymph # (Auto) 0.4 L (1.5-3.5) 10^3/uL [place] # (Auto) 0.2 (0.0-1.0) 10^3/uL Eos # (Auto) 0.0 (0.0-0.7) 10^3/uL Baso # (Auto) 0.0 (0.0-0.1) 10^3/uL Absolute Nucleated RBC 0.00 x10^3/uL Nucleated RBC % 0.0 /100WBC Sodium (135-145) mmol/L Potassium (3.5-5.0) mmol/L Chloride (101-111) mmol/L Carbon Dioxide (21-32) mmol/L Anion Gap (6-13) BUN (6-20) mg/dL Creatinine (0.6-1.2) mg/dL Estimated GFR (MDRD) (>89) Glucose (70-100) mg/dL Calcium (8.5-10.3) mg/dL Phosphorus (2.5-4.6) mg/dL Magnesium (1.7-2.8) mg/dL Total Bilirubin (0.2-1.0) mg/dL AST (10-42) IU/L ALT (10-60) IU/L Alkaline Phosphatase (42-121) IU/L Troponin I High Sens 94.8 H* 112.2 H* (2.3-19.7) ng/L B-Natriuretic Peptide (5-100) pg/mL Total Protein (6.7-8.2) g/dL Albumin (3.2-5.5) g/dL Globulin (2.1-4.2) g/dL Albumin/Globulin Ratio (1.0-2.2) Lipase (22-51) U/L TSH (0.34-5.60) uIU/mL 09/04/20 09/04/20 09/04/20 Range/Units 10:43 10:43 10:43 WBC (4.8-10.8) x10^3/uL RBC (4.70-6.10) 10^6/uL Hgb (14.0-18.0) g/dL Hct (42.0-52.0) % MCV (80.0-94.0) fL MCH (27.0-31.0) pg MCHC (32.0-36.0) g/dL RDW (12.0-15.0) % Plt Count (130-450) 10^3/uL MPV (7.4-11.4) fL Neut # (Auto) (1.5-6.6) 10^3/uL Lymph # (Auto) (1.5-3.5) 10^3/uL [place] # (Auto) (0.0-1.0) 10^3/uL Eos # (Auto) (0.0-0.7) 10^3/uL Baso # (Auto) (0.0-0.1) 10^3/uL Absolute Nucleated RBC x10^3/uL Nucleated RBC % /100WBC Sodium (135-145) mmol/L Potassium (3.5-5.0) mmol/L Chloride (101-111) mmol/L Carbon Dioxide (21-32) mmol/L Anion Gap (6-13) BUN (6-20) mg/dL Creatinine (0.6-1.2) mg/dL Estimated GFR (MDRD) (>89) Glucose (70-100) mg/dL Calcium (8.5-10.3) mg/dL Phosphorus (2.5-4.6) mg/dL Magnesium 2.3 (1.7-2.8) mg/dL Total Bilirubin (0.2-1.0) mg/dL AST (10-42) IU/L ALT (10-60) IU/L Alkaline Phosphatase (42-121) IU/L Troponin I High Sens 106.4 H* (2.3-19.7) ng/L B-Natriuretic Peptide 1085 H (5-100) pg/mL Total Protein (6.7-8.2) g/dL Albumin (3.2-5.5) g/dL Globulin (2.1-4.2) g/dL Albumin/Globulin Ratio (1.0-2.2) Lipase (22-51) U/L TSH (0.34-5.60) uIU/mL 03/17/20 03/17/20 Range/Units 10:43 10:43 WBC 4.6 L (4.8-10.8) x10^3/uL RBC 3.86 L (4.70-6.10) 10^6/uL Hgb 12.3 L (14.0-18.0) g/dL Hct 38.4 L (42.0-52.0) % MCV 99.5 H (80.0-94.0) fL MCH 31.9 H (27.0-31.0) pg MCHC 32.0 (32.0-36.0) g/dL RDW 15.1 H (12.0-15.0) % Plt Count 159 (130-450) 10^3/uL MPV 10.1 (7.4-11.4) fL Neut # (Auto) 2.6 (1.5-6.6) 10^3/uL Lymph # (Auto) 1.3 L (1.5-3.5) 10^3/uL [place] # (Auto) 0.5 (0.0-1.0) 10^3/uL Eos # (Auto) 0.2 (0.0-0.7) 10^3/uL Baso # (Auto) 0.0 (0.0-0.1) 10^3/uL Absolute Nucleated RBC 0.00 x10^3/uL Nucleated RBC % 0.0 /100WBC Sodium 135 (135-145) mmol/L Potassium 4.5 (3.5-5.0) mmol/L Chloride 102 (101-111) mmol/L Carbon Dioxide 25 (21-32) mmol/L Anion Gap 8.0 (6-13) BUN 41 H (6-20) mg/dL Creatinine 1.6 H (0.6-1.2) mg/dL Estimated GFR (MDRD) 41 L (>89) Glucose 102 H (70-100) mg/dL Calcium 9.8 (8.5-10.3) mg/dL Phosphorus (2.5-4.6) mg/dL Magnesium (1.7-2.8) mg/dL Total Bilirubin 1.0 (0.2-1.0) mg/dL AST 39 (10-42) IU/L ALT 20 (10-60) IU/L Alkaline Phosphatase 81 (42-121) IU/L Troponin I High Sens (2.3-19.7) ng/L B-Natriuretic Peptide (5-100) pg/mL Total Protein 7.8 (6.7-8.2) g/dL Albumin 3.7 (3.2-5.5) g/dL Globulin 4.1 (2.1-4.2) g/dL Albumin/Globulin Ratio 0.9 L (1.0-2.2) Lipase 53 H (22-51) U/L TSH (0.34-5.60) uIU/mL Assessment/Plan - Problem List (1) Acute congestive heart failure Impression: It is unclear if he has systolic or diastolic dysfunction. I spoke with his mailroom manager yesterday who states the most recent echocardiogram from 2018 showed a preserved ejection fraction and no significant valvular disease and his right heart pressures were unremarkable. He presented with dyspnea on exertion. He is not hypoxic or tachypneic at rest. His BNP was 1000 on admission as increased to over 2000 despite diuresis yesterday. He continues to have symptoms and so we will make him inpatient for further diuresis. We will increase his Lasix to 60 mg IV daily today given he does have chronic kidney disease at baseline with a creatinine of 1.6. We will recheck a BNP in the morning. Unfortunately, we do not have echocardiogram available for 3 more days and it is unlikely the patient will need to remain hospitalized for that long. He will need an outpatient echocardiogram when he follows up with his c ardiologist. We will continue to monitor on telemetry. (2) Bilateral pleural effusion Impression: This is likely secondary to the CHF. Was concern on chest x-ray that there may be a partially loculated pleural effusion and so we will obtain a CT of the ches t without contrast today for further evaluation. This should continue to improve with diuresis. (3) Elevated troponin Impression: This is likely demand ischemia due to his heart failure. His EKG did not suggest ischemia. His troponins are trending down. I did speak with his mailroom manager yesterday and he will follow-up on an outpatient basis. (4) CKD (chronic kidney disease) stage 3, GFR 30-59 ml/min Impression: His renal function remains at baseline. We will continue to monitor his renal function while he is being diuresed. (5) Hypothyroidism Impression: His TSH is low normal so we will decrease his Synthroid dose to 25 mcg from 50 mcg.
--- NOTE | 2020-03-18 13:16 | PHARMACY PROGRESS NOTE ---
- Best Possible Medication History Admit Date and Time: 03/18/20 1104 Processed by: Pharmacy Medication History completed: Yes Patient Interview: Pt interview ONLY source As the person ultimately responsible for medication therapy, providers are able to order a medication from an existing home medication list in [facility] via the "Reconcile Routine" prior to Confirmation of that medication by arch support technician. Such practice is discouraged except when the physician, in their clinical judgment, deems that a medical need exists for a medication without regard to previous use.
--- NOTE | 2020-03-18 13:23 | CT Report ---
PROCEDURE: CHEST WO INDICATIONS: Loculated effusion on chest x-ray. Dyspnea. TECHNIQUE: Noncontrast 5 mm thick sections acquired from the pulmonary apices to the posterior costophrenic angl es. 7 mm thick coronal and sagittal MIP reformats were then acquired. For radiation dose reduction, the following was used: automated exposure control, adjustment of mA and/or kV according to patient size. COMPARISON: Relation is made with prior chest radiographs 03/17/2020 and 02/14/2016 FINDINGS: Image quality: Excellent. Lungs and pleura: Small to moderate bilateral pleural effusions are seen. There is a mild amount of f luid seen tracking along the right oblique fissure. No johnson loculated pleural fluid is identified. O verlying consolidation is seen, which is attributed to atelectasis. Centrilobular emphysematous hurtado es are seen, which are more prominent at the lung apices down at the lung bases. No pneumothorax is s een. The central airways are patent. Mediastinum: Heart size is at the upper limits of normal. Coronary artery calcifications are seen. C alcification of the mitral valve annulus can be seen. No pericardial effusion. No mediastinal adenop athy by size criteria. Thoracic aorta and central pulmonary arteries are normal in size. Atheroscler otic calcification is seen. Esophagus is normal in caliber. No hiatal hernia. Bones and chest wall: No suspicious bony lesions. Age-appropriate degenerative changes are seen. Multiple levels of anterior wedge deformity are seen. Multiple bridging endplate osteophytes are seen . Accentuated, prominent cervical thoracic kyphosis is seen. No acute appearing vertebral body compre ssion fractures. No axillary or supraclavicular adenopathy by size criteria. The thyroid is normal in size. Abdomen: A small amount of ascites is seen. Atherosclerotic calcification is seen. The visualized por tions of the upper abdominal structures are otherwise within normal limits. IMPRESSION: Small to moderate bilateral pleural effusions, with overlying presumed atelectasis. Heart size at the upper limits of normal. Please correlate with patient examination, history, and lab oratory values for underlying congestive heart failure. There is a small amount of ascites seen. Incidental note is made of: Emphysema Atherosclerotic calcification, including coronary artery calcification Remote appearing anterior wedge deformities, with associated accentuated kyphosis Reviewed by: Cecil Meléndez MD on 03/18/2020 12:21 PM AKDT Approved by: Cecil Meléndez MD on 03/18/2020 12:21 PM MARISELA Station ID: [id number]
[2020-03-19 05:36] LABS: BASOPHILS % (AUTO) 0.4 %; EOSINOPHILS # (AUTO) 0.1 10^3/uL (0.0-0.7); EOSINOPHILS % (AUTO) 2.8 %; HGB - HEMOGLOBIN 10.9 g/dL (14.0-18.0); LYMPHOCYTES # (AUTO) 1.4 10^3/uL (1.5-3.5); LYMPHOCYTES % (AUTO) 29.7 %; MEAN CORPUSCULAR HEMOGLOBIN 31.2 pg (27.0-31.0); MEAN CORPUSCULAR HGB CONC 31.8 g/dL (32.0-36.0); MEAN CORPUSCULAR VOLUME 98.3 fL (80.0-94.0); MEAN PLATELET VOLUME 9.7 fL (7.4-11.4); MONOCYTES # (AUTO) 0.4 10^3/uL (0.0-1.0); MONOCYTES % (AUTO) 9.4 %; NEUTROPHILS # (AUTO) 2.7 10^3/uL (1.5-6.6); NEUTROPHILS % (AUTO) 57.5 %; PLT - PLATELET COUNT 150 10^3/uL (130-450); RED BLOOD COUNT 3.49 10^6/uL (4.70-6.10); RED CELL DISTRIBUTION WIDTH 15.2 % (12.0-15.0); WHITE BLOOD COUNT 4.7 x10^3/uL (4.8-10.8)
[2020-03-19 05:46] LABS: CALCIUM 9.5 mg/dL (8.5-10.3); CREATININE 1.8 mg/dL (0.6-1.2)
[2020-03-19] MEDS: SODIUM CHLORIDE FLUSH 0.9% 10 ML SYRINGE IVP SCH ×2 (06:34→08:44)
[2020-03-19] MEDS ORDERED: LEVOTHYROXINE 25 MCG TABLET PO SCH (07:00)
[2020-03-19] MEDS: ASPIRIN CHEW 81 MG TABLET PO SCH (08:38)
[2020-03-19] MEDS: HEPARIN 5,000 UNIT/ML VIAL SUBQ SCH (08:40)
[2020-03-19] MEDS: METOPROLOL TARTRATE 25 MG TABLET PO SCH (08:43)
--- NOTE | 2020-03-19 08:50 | Discharge Plan ---
Discharge Plan Problem Reviewed?: Yes Disposition: Home, Self Care Condition: Stable Prescriptions: Albuterol Sulfate [Albuterol Sulfate Hfa] 1 puffs IH DAILY #7 gm Furosemide [Lasix] 40 mg PO DAILY #30 tablet Metoprolol Tartrate [Lopressor] 25 mg PO BID #60 tablet Diet: Low Sodium Activity Restrictions: Activity as Tolerated Health Concerns: You were seen in the hospital because there was concerns that you may have heart failure which can cause fluid to accumulate in your lungs and make you feel short of breath. Your chest x-ray and CT scan of the chest suggested you did have fluid around your lungs. You were given Lasix which is a water pill to help remove fluids through an IV and this improved your breathing. You will need an echocardiogram which is an ultrasound of your heart to see what kind of heart failure you have as this can change which medications you should be on. Unfortunately, this is not available at our facility over the weekend. Plan of Treatment: Please begin to take Lasix 40 mg every morning. This is a water pill to help keep fluid out of your lungs. Please continue to take the lower dose of thyroid medication that your primary care doctor had recently prescribed to you. You should have your thyroid numbers rechecked in 4 to 6 weeks. Please have blood work done on March 22 which is the Friday to make sure your kidney numbers are stable. Please follow-up with your primary care provider or window dresser within 1 week as you will need an ultrasound of your heart completed to see what kind of heart failure you have. Care Goals: The goal is to treat your heart failure and keep you out of the hospital. Please return to the emergency department if you develop chest pain, worsening leg swelling, difficulty breathing. Assessment: The patient expressed understanding of the treatment plan. Additional Instructions or Follow Up instructions: Please follow-up with your primary care provider or window dresser within 1 week. No Smoking: If you smoke, Please STOP! Call for help. Follow-up with: Jose Hope MD [Primary Care Provider] -
[2020-03-19] MEDS ORDERED: FUROSEMIDE 40 MG TABLET PO SCH (09:00)
[2020-03-19] MEDS ORDERED: LOSARTAN 50 MG TABLET PO SCH (09:00)
--- NOTE | 2020-03-19 11:13 | DISCHARGE SUMMARY ---
"Discharge Summary Admit Date: 03/17/20 Discharge Date: 03/19/20 Discharging Provider: Casper Gardner Primary Care Provider: Jose Hope Code Status: Do Not Attempt Resuscitation Condition at Discharge: Stable Discharge Disposition: 01 Home, Self Care - DIAGNOSES Admission Diagnoses: CHF exacerbation Elevated troponin Pleural effusion due to CHF Hypertension Hypothyroidism CKD stage III Discharge Diagnoses with Status of Each Condition: Acute congestive heart failure - improved. Bilateral pleural effusion - stable. Elevated troponin - stable. CKD stage III - stable. Hypothyroidism - stable. Hypertension - stable. 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 pt report when pt awoke he was feeling short of breath in this AM. pt reports ongoing shortness of cal ath has been over 1 month that is worsened by laying down. pt has hx of COPD that he uses an inhaler once a day for but he has had to increase that to twice a day recently. pt states he used the inhaler and got minimal relief. pt also report progressive edema in bilateral lower extremities and scrotum as well during past a few weeks. Patient denies fever, chest pain, abdominal pain, nausea, vomiting, diarrhea. Patient reported he had Lasix about 7 months ago by his PCP but only given 1 prescribed. In routine laboratory test patient had a BNP over 1000, Baseline was over 100. Patient had slightly elevated troponin at 100, Repeated troponin at 110. EKG did not show elevated ST segment. Patient deny chest pain. Patient is hemodynamic stable at this time. [employer] was called by Dr. Gardner and recommended we admitted and monitor pt, and see outpatient with funeral home manager with echo study. Unfortunately we do not have echo study in the weekend and today. Discussed the care goal with the patient, patient stay he want DNR/DNI for CODE STATUS - CONSULTS | PROCEDURES Procedures: CT of the chest without contrast performed March 18 showed [id number] bilateral pleural effusions with overlying presumed atelectasis. Heart size is upper limits of normal. Please correlate with patient examination, history, and laboratory values for underlying congestive heart failure. There is a small amount of ascites seen. Incidental note of emphysema. - HOSPITAL COURSE Hospital Course: Patient was admitted to the floor for acute congestive heart failure. He was diuresed with Lasix 40 mg IV daily. His troponins were also elevated on admission and these were trended. His troponins were initially flat and then trended down. The patient did not have any chest pain and his EKG did not suggest ischemia. This was discussed with his funeral home manager on admission who will follow up with the patient on outpatient basis. Unfortunately, echocardiogram was not available over the weekend and the patient was unable to get an echocardiogram during this hospitalization. On hospital day 2, his BNP had doubled to nearly 2000 and the patient still felt short of breath and so he was made inpatient. His Lasix was increased to 60 mg IV daily. We obtained a CT of the chest without contrast given his x-ray on admission was concerning for possible loculated effusion. CT of the chest showed [id number] bilateral pleural effusions and likely CHF. There was no evidence of a loculated effusion. The following day the patient felt improved. His BNP had improved to 1200. His lower extremity edema had also improved. His creatinine was slightly increased at 1.8 compared to 1.6 and his BUN had also slightly increased. It was felt the patient was likely euvolemic at this point. He was discharged on Lasix 40 mg daily in addition to his home medications. A TSH was checked during his hospitalization which was low normal. This was discussed with the patient who stated that his primary care provider had decreased his dose of Synthroid just 1 week ago. I asked the patient to continue this lower dose and to follow- up with his primary care provider for repeat TSH in 4 to 6 weeks. I also asked him to follow-up with his primary care provider and funeral home manager as he will need an outpatient echocardiogram. I also asked him to have labs in 3 days to ensure that his BMP is stable. The patient was agreeable to this. - ALLERGIES Allergies/Adverse Reactions: Allergies Allergy/AdvReac Type Severity Reaction Status Date / Time Sulfa (Sulfonamide Allergy Unknown Verified 05/27/17 08:17 Antibiotics) codeine AdvReac Nausea Verified 05/27/17 08:17 - MEDICATIONS Home Medications: Ambulatory Orders Medication Instructions Recorded Confirmed Levothyroxine [Synthroid] 50 mg PO DAILY 02/14/16 03/18/20 Losartan [Cozaar] 25 mg PO DAILY 02/14/16 03/18/20 Aspirin [Aspir-Low] 81 mg PO DAILY 03/13/16 03/18/20 Albuterol Sulfate [Albuterol 1 puffs IH DAILY #7 gm 03/19/20 Sulfate Hfa] Furosemide [Lasix] 40 mg PO DAILY #30 tablet 03/19/20 Metoprolol Tartrate [Lopressor] 25 mg PO BID #60 tablet 03/19/20 - PHYSICAL EXAM AT DISCHARGE General Appearance: positive: No acute distress, Alert, Mild distress Eyes Bilateral: positive: Conjunctivae nml ENT: positive: ENT inspection nml Neck: positive: Nml inspection Respiratory: positive: No respiratory distress, Other (Diminished in bases.). negative: Wheezes, Rales Cardiovascular: positive: Regular rate & rhythm, No murmur. negative: Tachycardia, Systolic murmur Abdomen: positive: Non-tender, No distention. negative: Tenderness, Guarding, Rebound Skin: positive: Warm, Dry Extremities: positive: Pedal edema (Trace edema in bilateral lower extremities.) Neurologic/Psychiatric: positive: Motor nml. negative: Disoriented to person, Disoriented to place Physical Exam Other/Comments: Vital Signs - 24 hr 03/18/20 03/18/20 03/18/20 15:43 20:13 20:15 Temperature 36.5 C 36.6 C Heart Rate Heart Rate [ 62 74 Brachial] Respiratory 20 18 Rate Blood Pressure 135/62 H Blood Pressure 140/78 H [Left Brachial artery] Blood Pressure 135/62 H [Right Brachial artery] O2 Saturation 96 99 03/18/20 03/19/20 03/19/20 23:54 04:16 05:00 Temperature 36.5 C 36.5 C 36.4 C L Heart Rate 62 Heart Rate [ 62 63 Brachial] Respiratory 20 20 18 Rate Blood Pressure Blood Pressure [Left Brachial artery] Blood Pressure 130/66 120/78 [Right Brachial artery] O2 Saturation 96 96 94 03/19/20 03/19/20 03/19/20 08:05 08:43 11:10 Temperature 36.4 C L 36.7 C Heart Rate Heart Rate [ 64 73 Brachial] Respiratory 18 20 Rate Blood Pressure 120/58 L Blood Pressure [Left Brachial artery] Blood Pressure 128/75 114/60 [Right Brachial artery] O2 Saturation 94 97 03/19/20 03/19/20 03/19/20 12:35 12:54 13:49 Temperature 36.6 C Heart Rate 74 Heart Rate [ 62 79 Brachial] Respiratory 18 20 20 Rate Blood Pressure Blood Pressure [Left Brachial artery] Blood Pressure 111/58 L 115/58 L [Right Brachial artery] O2 Saturation 98 97 Oxygen O2 Source Room air - LABS Result Diagrams: 03/19/20 05:15 03/19/20 05:15 Other Lab Results: Laboratory Tests 03/17/20 03/17/20 03/17/20 10:43 10:43 10:43 WBC 4.6 L RBC 3.86 L Hgb 12.3 L Hct 38.4 L MCV 99.5 H MCH 31.9 H MCHC 32.0 RDW 15.1 H Plt Count 159 MPV 10.1 Neut # (Auto) 2.6 Lymph # (Auto) 1.3 L [place] # (Auto) 0.5 Eos # (Auto) 0.2 Baso # (Auto) 0.0 Absolute Nucleated RBC 0.00 Nucleated RBC % 0.0 Sodium 135 Potassium 4.5 Chloride 102 Carbon Dioxide 25 Anion Gap 8.0 BUN 41 H Creatinine 1.6 H Estimated GFR (MDRD) 41 L Glucose 102 H Calcium 9.8 Phosphorus Magnesium Total Bilirubin 1.0 AST 39 ALT 20 Alkaline Phosphatase 81 Troponin I High Sens 106.4 H* B-Natriuretic Peptide Total Protein 7.8 Albumin 3.7 Globulin 4.1 Albumin/Globulin Ratio 0.9 L Lipase 53 H TSH 03/17/20 03/17/20 03/17/20 10:43 10:43 12:32 WBC RBC Hgb Hct MCV MCH MCHC RDW Plt Count MPV Neut # (Auto) Lymph # (Auto) [place] # (Auto) Eos # (Auto) Baso # (Auto) Absolute Nucleated RBC Nucleated RBC % Sodium Potassium Chloride Carbon Dioxide Anion Gap BUN Creatinine Estimated GFR (MDRD) Glucose Calcium Phosphorus Magnesium 2.3 Total Bilirubin AST ALT Alkaline Phosphatase Troponin I High Sens 112.2 H* B-Natriuretic Peptide 1085 H Total Protein Albumin Globulin Albumin/Globulin Ratio Lipase TSH 03/17/20 03/18/20 03/18/20 18:50 05:14 05:14 WBC 3.8 L RBC 3.43 L Hgb 10.9 L Hct 33.7 L MCV 98.3 H MCH 31.8 H MCHC 32.3 RDW 14.9 Plt Count 139 MPV 9.5 Neut # (Auto) 3.1 Lymph # (Auto) 0.4 L [place] # (Auto) 0.2 Eos # (Auto) 0.0 Baso # (Auto) 0.0 Absolute Nucleated RBC 0.00 Nucleated RBC % 0.0 Sodium 136 Potassium 4.4 Chloride 108 Carbon Dioxide 20 L Anion Gap 8.0 BUN 44 H Creatinine 1.6 H Estimated GFR (MDRD) 41 L Glucose 137 H Calcium 9.6 Phosphorus 3.6 Magnesium 1.9 Total Bilirubin AST ALT Alkaline Phosphatase Troponin I High Sens 94.8 H* B-Natriuretic Peptide Total Protein Albumin Globulin Albumin/Globulin Ratio Lipase TSH 03/18/20 03/18/20 03/19/20 05:14 05:14 05:15 WBC RBC Hgb Hct MCV MCH MCHC RDW Plt Count MPV Neut # (Auto) Lymph # (Auto) [place] # (Auto) Eos # (Auto) Baso # (Auto) Absolute Nucleated RBC Nucleated RBC % Sodium Potassium Chloride Carbon Dioxide Anion Gap BUN Creatinine Estimated GFR (MDRD) Glucose Calcium Phosphorus Magnesium Total Bilirubin AST ALT Alkaline Phosphatase Troponin I High Sens B-Natriuretic Peptide 2096 H 1286 H Total Protein Albumin Globulin Albumin/Globulin Ratio Lipase TSH 0.83 03/19/20 03/19/20 05:15 05:15 WBC 4.7 L RBC 3.49 L Hgb 10.9 L Hct 34.3 L MCV 98.3 H MCH 31.2 H MCHC 31.8 L RDW 15.2 H Plt Count 150 MPV 9.7 Neut # (Auto) 2.7 Lymph # (Auto) 1.4 L [place] # (Auto) 0.4 Eos # (Auto) 0.1 Baso # (Auto) 0.0 Absolute Nucleated RBC 0.00 Nucleated RBC % 0.0 Sodium 134 L Potassium 4.1 Chloride 103 Carbon Dioxide 23 Anion Gap 8.0 BUN 50 H Creatinine 1.8 H Estimated GFR (MDRD) 36 L Glucose 91 Calcium 9.5 Phosphorus Magnesium Total Bilirubin AST ALT Alkaline Phosphatase Troponin I High Sens B-Natriuretic Peptide Total Protein Albumin Globulin Albumin/Globulin Ratio Lipase TSH - DIAGNOSTIC IMAGING Diagnostic Imaging Results: Final report reviewed - FOLLOW UP Follow Up: He was asked to follow-up with his primary care provider and funeral home manager and to at least see one of these providers within 1 week. - TIME SPENT Time Spent in Discharge (Minutes): 32"
[2020-03-19] MEDS: IPRATROPIUM/ALBUTEROL 3 ML NEB INH PRN (12:54)
[2020-03-19 13:50] VITALS: BP 115/58
== END 2020-03-19 13:45 | disposition home or self-care (01) | DRG 293 ==
LOC: EDUNIT# → ED 10:18 → MS2 13:16 → OBSVTOIN 03-18 11:04
PROVIDERS: ADMIT Internal Medicine; ATTEND Internal Medicine
DX: I13.0 Hypertensive heart and chronic kidney disease with heart failure and stage 1 through stage 4 chronic kidney disease, or unspecified chronic kidney disease (principal); I50.9 Heart failure, unspecified; N18.3 Chronic kidney disease, stage 3 (moderate); E03.9 Hypothyroidism, unspecified; R79.89 Other specified abnormal findings of blood chemistry; J43.9 Emphysema, unspecified; Z95.2 Presence of prosthetic heart valve; Z95.5 Presence of coronary angioplasty implant and graft; Z87.891 Personal history of nicotine dependence; Z66 Do not resuscitate
CPT/HCPCS: 36415; 71045; 71250; 80048; 80053; 83690; 83735; 83880; 84100; 84443; 84484; 85025; 93005; 94640; 96372; 96374; 96375; 99285; A9270; G0378